=== PATIENT | male | born 1990 | race African-American/Black ===

== ENCOUNTER 2016-07-13 15:26 | Emergency (ER) | payer SELFPAY ==
[~2016-07-13] VITALS: Ht 182.9 cm; Wt 75.3 kg
[~2016-07-13 15:26] MED LIST: METO25TA4 PO
--- NOTE | 2016-07-13 16:12 | PHYS DOC ---
Past Medical History Past Medical History: Pancreatitis Past Surgical History: No Surgical History Alcohol Use: Heavy Drug Use: None Adult General Chief Complaint Chief Complaint: ABDOMINAL PAIN HPI HPI Patient is a 26 year old male with history of pancreatitis who presents today with moderate mid epigastric abdominal pain with nausea that began yesterday. Patient states he drunk 3 bottles of beer and a pint of hard liquor last night as well as a bottle of beer at 1 PM prior to coming to the ED. PCP:None GI:None Review of Systems Review of Systems Constitutional: Denies fever or chills [] Eyes: Denies change in visual acuity, redness, or eye pain [] HENT: Denies nasal congestion or sore throat [] Respiratory: Denies cough or shortness of breath [] Cardiovascular: No additional information not addressed in HPI [] GI: Epigastric abdominal pain, nausea, : Denies dysuria or hematuria [] Musculoskeletal: Denies back pain or joint pain [] Integument: Denies rash or skin lesions [] Neurologic: Denies headache, focal weakness or sensory changes [] Endocrine: Denies polyuria or polydipsia [] Current Medications Current Medications Current Medications Medications (Trade) Dose Ordered Sig/Jayne Start Time Stop Time Status Last Admin Dose Admin Famotidine (Pepcid) 20 mg 1X ONCE 07/13/16 16:15 07/13/16 16:16 DC 07/13/16 16:25 20 MG Hydromorphone HCl (Dilaudid) 1 mg 1X ONCE 07/13/16 17:30 07/13/16 17:32 DC 07/13/16 18:13 1 MG Info (Do NOT chart on this entry -- for MONITORING) 1 each PRN DAILY PRN 07/13/16 17:45 07/15/16 17:44 Iohexol (Omnipaque 300 Mg/ml) 75 ml 1X ONCE 07/13/16 17:45 07/13/16 17:46 DC 07/13/16 17:45 75 ML Ondansetron HCl (Zofran) 4 mg 1X ONCE 07/13/16 16:15 07/13/16 16:16 DC 07/13/16 16:25 4 MG Sodium Chloride 1,000 ml @ 1,000 mls/hr 1X ONCE 07/13/16 16:15 07/13/16 17:14 DC 07/13/16 16:24 1,000 MLS/HR Allergies Allergies Allergies Coded Allergies Type Severity Reaction Last Updated Verified shellfish derived Allergy Intermediate hives 09/28/15 Yes Physical Exam Physical Exam Constitutional: Well developed, well nourished, no acute distress, non-toxic appearance. [] HENT: Normocephalic, atraumatic, bilateral external ears normal, oropharynx moist, no oral exudates, nose normal. [] Eyes: PERRLA, EOMI, conjunctiva normal, no discharge. [] Neck: Normal range of motion, no tenderness, supple, no stridor. [] Cardiovascular:Heart rate regular rhythm, no murmur [] Lungs & Thorax: Bilateral breath sounds clear to auscultation [] Abdomen: Bowel sounds normal, soft, slight mid epigastric abdominal tenderness, no right upper quadrant or right lower quadrant pain or tenderness, no masses, no pulsatile masses. [] Skin: Warm, dry, no erythema, no rash. [] Back: No tenderness, no CVA tenderness. [] Extremities: No tenderness, no cyanosis, no clubbing, ROM intact, no edema. [] Neurologic: Alert and oriented X 3, normal motor function, normal sensory function, no focal deficits noted. [] Psychologic: Affect normal, judgement normal, mood normal. [] Current Patient Data Vital Signs Vital Signs Date Time Temp Pulse Resp B/P (MAP) Pulse Ox O2 Delivery O2 Flow Rate FiO2 07/13/16 18:13 62 18 118/67 (84) 98 Room Air 07/13/16 15:40 98.6 98.6 Lab Values Laboratory Tests Test 07/13/16 16:00 07/13/16 16:10 07/13/16 16:19 Urine Opiates Screen Neg (NEG) Urine Methadone Screen Neg (NEG) Urine Barbiturates Neg (NEG) Urine Phencyclidine Screen Neg (NEG) Urine Amphetamine/Methamphetamine Neg (NEG) Urine Benzodiazepines Screen Neg (NEG) Urine Cocaine Screen Neg (NEG) Urine Cannabinoids Screen Pos (NEG) Urine Ethyl Alcohol Pos (NEG) Urine Collection Type Unknown Urine Color Yellow Urine Clarity Clear Urine pH 5.0 Urine Specific Ward 1.025 Urine Protein Negative mg/dL (NEG-TRACE) Urine Glucose (UA) Negative mg/dL (NEG) Urine Ketones (Stick) Trace mg/dL (NEG) Urine Blood Negative (NEG) Urine Nitrite Negative (NEG) Urine Bilirubin Negative (NEG) Urine Urobilinogen Dipstick 1.0 mg/dL (0.2 mg/dL) Urine Leukocyte Esterase Trace (NEG) Urine RBC 0 /HPF (0-2) Urine WBC 1-4 /HPF (0-4) Urine Squamous Epithelial Cells Occ /LPF Urine Bacteria Few /HPF (0-FEW) Urine Mucus Slight /LPF White Blood Count 7.3 x10^3/uL (4.0-11.0) Red Blood Count 5.40 x10^6/uL (4.30-5.70) Hemoglobin 17.3 g/dL (13.0-17.5) Hematocrit 49.6 % (39.0-53.0) Mean Corpuscular Volume 92 fL (79-100) Mean Corpuscular Hemoglobin 32 pg (25-35) Mean Corpuscular Hemoglobin Concent 35 g/dL (31-37) Red Cell Distribution Width 13.4 % (11.5-14.5) Platelet Count 192 x10^3/uL (140-400) Neutrophils (%) (Auto) 64 % (31-73) Lymphocytes (%) (Auto) 23 % (24-48) L Monocytes (%) (Auto) 12 % (0-9) H Eosinophils (%) (Auto) 0 % (0-3) Basophils (%) (Auto) 1 % (0-3) Neutrophils # (Auto) 4.7 x10^3uL (1.8-7.7) Lymphocytes # (Auto) 1.7 x10^3/uL (1.0-4.8) Monocytes # (Auto) 0.9 x10^3/uL (0.0-1.1) Eosinophils # (Auto) 0.0 x10^3/uL (0.0-0.7) Basophils # (Auto) 0.1 x10^3/uL (0.0-0.2) Prothrombin Time 13.2 SEC (11.7-14.0) Prothrombin Time INR 1.1 (0.8-1.1) PTT 29 SEC (24-38) Sodium Level 134 mmol/L (136-145) L Potassium Level 4.5 mmol/L (3.5-5.1) Chloride Level 99 mmol/L (98-107) Carbon Dioxide Level 24 mmol/L (21-32) Anion Gap 11 (6-14) Blood Urea Nitrogen 13 mg/dL (8-26) Creatinine 0.9 mg/dL (0.7-1.3) Estimated GFR (Cockcroft-Gault) 121.6 BUN/Creatinine Ratio 14 (6-20) Glucose Level 153 mg/dL (70-99) H Calcium Level 8.4 mg/dL (8.5-10.1) L Total Bilirubin 1.0 mg/dL (0.2-1.0) Aspartate Amino Transferase (AST) 693 U/L (15-37) H Alanine Aminotransferase (ALT) 406 U/L (16-63) H Alkaline Phosphatase 110 U/L (46-116) Total Protein 8.4 g/dL (6.4-8.2) H Albumin 3.8 g/dL (3.4-5.0) Albumin/Globulin Ratio 0.8 (1.0-1.7) L Lipase 648 U/L (73-393) H Ethyl Alcohol Level 189 mg/dL (0-10) H Laboratory Tests 07/13/16 16:19 Laboratory Tests 07/13/16 16:19 EKG EKG [] Radiology/Procedures Radiology/Procedures []PROCEDURE: CT ABD PELV W/ IV CONTRST ONLY PROCEDURE CT abdomen and pelvis with contrast dated 07/13/2016. HISTORY Upper abdominal pain. TECHNIQUE Contiguous axial imaging of the abdomen and pelvis performed after the administration of 75 cc Omnipaque 300.Exposure: One or more of the following individualized dose reduction techniques were utilized for this exam: 1. Automated exposure control. 2. Adjustment of the mA and/or kV according to patient size. 3. Use of iterative reconstruction technique. COMPARISON None. FINDINGS Limited images of lung bases are clear. Mild mucous plugging left lower lobe. Heart size within normal limits. No pleural or pericardial effusion. Diffuse low density of the liver compatible with mild fatty infiltration. No apparent ectatic mass. Biliary tree normal in caliber. Possible mild wall thickening of the gallbladder. There is low density surrounding the pancreatic head, neck and body with small amount of peripancreatic fluid. No well-circumscribed fluid collection to suggest pseudocyst. The pancreatic head is somewhat prominent relative to the body and tail with some globular contour abnormality. No discrete mass. The peripancreatic vasculature appears to be patent. Spleen is normal in size. Adrenal glands and kidneys are unremarkable. No hydronephrosis. Unopacified GI tract normal in caliber and contour. No focal bowel wall thickening. No inflammatory stranding in the mesentery. Appendix normal in caliber. No ascites or lymphadenopathy. Images of pelvis show nondistended urinary bladder. Prostate gland normal in size. No free fluid or lymphadenopathy. Bone windows show no acute findings. Mild lower lumbar spondylosis. IMPRESSION - Findings consistent with acute pancreatitis with fluid and inflammatory stranding surrounding the pancreatic head, neck and body. No well-formed pseudocyst or abscess at this time. - Lobular fullness of the pancreatic head is likely related to inflamed gland. Underlying mass cannot be completely excluded. Suggest followup imaging to ensure resolution/stability. - Mild hepatic steatosis. - Mild wall thickening of the gallbladder, nonspecific. Electronically signed by: Víctor Pollock (July 13, 2016 18:14:13) DICTATED and SIGNED BY: VÍCTOR POLLOCK MD DATE: 07/13/161813 Course & Med Decision Making Course & Med Decision Making Pertinent Labs and Imaging studies reviewed. (See chart for details) This is a 26-year-old male patient with history of pancreatitis who presents today with midepigastric abdominal pain with nausea that began yesterday. He drank 1 pint of hard liquor, with, 3 bottles of beer yesterday and a bottle of beer today at 13:00 CBC no acute findings, CMP with AST of 693, ALT of 406, lipase 648, drug screen positive for marijuana and alcohol, alcohol level 189 CT of the abdomen and pelvic was noted for acute pancreatitis, was also suspicion for underlying mass on the pancreatic head. Offered patient admission. He states he has a job he cannot miss tomorrow. He requested outpatient management. Given a prescription for pain medicine and nausea medicine and requested him not to drink alcohol, requested he seeks help for ETOH abuse. Requested him to be on a clear liquid diet. Requested him to follow-up with his own doctor or the provided GI doctor on Saturday. Janaon Disclaimer Janaon Disclaimer This electronic medical record was generated, in whole or in part, using a voice recognition dictation system. Departure Departure Impression: Primary Impression: Pancreatitis, alcoholic, acute Additional Impression: ETOH abuse Disposition: HOME, SELF-CARE Condition: STABLE Referrals: NO PCP (PCP) OMAYRA HILL MD follow up tomorrow Patient Instructions: Acute Pancreatitis, Alcohol Intoxication Additional Instructions: You were seen for acute pancreatitis. We offered you admission which you refused come back to the ED if symptoms worsen. Please be on a clear diet, please do not drink. Follow up with the doctor we provided tomorrow Scripts Ondansetron (ZOFRAN ODT) 4 Mg Tab.rapdis 1 TAB SL Q8HRS, #15 TAB Prov: CAROLYN MITTAL APRN 07/13/16 Oxycodone/Apap 5-325 (PERCOCET 5-325 MG TABLET) 1 Each Tablet 1-2 TAB PO Q4-6HRS, #12 TAB Prov: CAROLYN MITTAL APRN 07/13/16 Problem Qualifiers Primary Impression: Pancreatitis, alcoholic, acute Acute pancreatitis complication: unspecified Qualified Codes: K85.20 - Alcohol induced acute pancreatitis without necrosis or infection CAROLYN MITTAL APRN July 13, 2016 16:12
[2016-07-13] MEDS ORDERED: HYDROmorphone 2 MG/ML VIAL IV ONE ×2 (16:15→17:30)
[2016-07-13] MEDS ORDERED: ONDANSETRON PF 4 MG/2 ML VIAL. IV ONE (16:15)
[2016-07-13] MEDS ORDERED: IV NORMAL SALINE 1000ML BAG 1,000 ML IV ONE (16:15)
[2016-07-13] MEDS ORDERED: FAMOTIDINE 20 MG/2 ML VIAL IVP ONE (16:15)
[2016-07-13 16:19] LABS: BILIRUBIN,URINE NEGATIVE (NEG); GLUCOSE,URINE NEGATIVE (NEG); NITRITE,URINE NEGATIVE (NEG); PROTEIN,URINE NEGATIVE (NEG-TRACE)
[2016-07-13 16:25] LABS: BASO # 0.1 x10^3/uL (0.0-0.2); BASO % 1 % (0-3); EOS % 0 % (0-3); HEMATOCRIT 49.6 % (39.0-53.0); HEMOGLOBIN 17.3 g/dL (13.0-17.5); LYMPH # 1.7 x10^3/uL (1.0-4.8); LYMPH % 23 % (24-48); MEAN CORPUSCULAR HEMOGLOBIN 32 pg (25-35); MEAN CORPUSCULAR HGB CONC 35 g/dL (31-37); MEAN CORPUSCULAR VOLUME 92 fL (79-100); MONO % 12 % (0-9); NEUT % 64 % (31-73); PLATELET COUNT 192 x10^3/uL (140-400); RED CELL DISTRIBUTION WIDTH 13.4 % (11.5-14.5); WHITE BLOOD COUNT 7.3 x10^3/uL (4.0-11.0)
[2016-07-13 16:30] LABS: BACTERIA,URINE FEW /HPF (0-FEW); RBC,URINE 0 /HPF (0-2)
[2016-07-13 16:31] LABS: SQUAMOUS EPITHELIAL CELL,UR OCC /LPF
[2016-07-13 16:34] LABS: BARBITURATES NEG (NEG); BENZODIAZEPINES NEG (NEG); CANNABINOIDS POS (NEG); COCAINE NEG (NEG); METHADONE NEG (NEG); OPIATES NEG (NEG); PHENCYCLIDINE NEG (NEG)
[2016-07-13 16:35] LABS: INR 1.1 (0.8-1.1); PROTHROMBIN TIME PATIENT 13.2 SEC (11.7-14.0)
[2016-07-13 16:39] LABS: CALCIUM 8.4 mg/dL (8.5-10.1); CREATININE 0.9 mg/dL (0.7-1.3); GFR 121.6; POTASSIUM 4.5 mmol/L (3.5-5.1)
[2016-07-13 16:45] LABS: ALBUMIN 3.8 g/dL (3.4-5.0); ALBUMIN/GLOBULIN RATIO 0.8 (1.0-1.7); TOTAL PROTEIN 8.4 g/dL (6.4-8.2)
[2016-07-13] MEDS ORDERED: IOHEXOL 300 MG/ML 75 ML VIAL IV ONE (17:45)
[2016-07-13] MEDS ORDERED: CONTRAST GIVEN MC PRN (17:45)
--- NOTE | 2016-07-13 18:15 | RAD ---
PROCEDURE CT abdomen and pelvis with contrast dated 07/13/2016. HISTORY Upper abdominal pain. TECHNIQUE Contiguous axial imaging of the abdomen and pelvis performed after the administration of 75 cc Omnipaque 300.Exposure: One or more of the following individualized dose reduction techniques were utilized for this exam: 1. Automated exposure control. 2. Adjustment of the mA and/or kV according to patient size. 3. Use of iterative reconstruction technique. COMPARISON None. FINDINGS Limited images of lung bases are clear. Mild mucous plugging left lower lobe. Heart size within normal limits. No pleural or pericardial effusion. Diffuse low density of the liver compatible with mild fatty infiltration. No apparent ectatic mass. Biliary tree normal in caliber. Possible mild wall thickening of the gallbladder. There is low density surrounding the pancreatic head, neck and body with small amount of peripancreatic fluid. No well-circumscribed fluid collection to suggest pseudocyst. The pancreatic head is somewhat prominent relative to the body and tail with some globular contour abnormality. No discrete mass. The peripancreatic vasculature appears to be patent. Spleen is normal in size. Adrenal glands and kidneys are unremarkable. No hydronephrosis. Unopacified GI tract normal in caliber and contour. No focal bowel wall thickening. No inflammatory stranding in the mesentery. Appendix normal in caliber. No ascites or lymphadenopathy. Images of pelvis show nondistended urinary bladder. Prostate gland normal in size. No free fluid or lymphadenopathy. Bone windows show no acute findings. Mild lower lumbar spondylosis. IMPRESSION - Findings consistent with acute pancreatitis with fluid and inflammatory stranding surrounding the pancreatic head, neck and body. No well-formed pseudocyst or abscess at this time. - Lobular fullness of the pancreatic head is likely related to inflamed gland. Underlying mass cannot be completely excluded. Suggest followup imaging to ensure resolution/stability. - Mild hepatic steatosis. - Mild wall thickening of the gallbladder, nonspecific. Electronically signed by: Víctor Pollock (July 13, 2016 18:14:13)
[2016-07-13 19:00] VITALS: BP 124/75
[2016-07-13] MEDS ORDERED: OXYC-323 PO (19:15)
[2016-07-13] MEDS ORDERED: ONDA4TAB10 SL (19:18)
== END 2016-07-13 19:25 | disposition home or self-care (01) ==
LOC: ER 16:32
DX: K85.20 Alcohol induced acute pancreatitis without necrosis or infection (principal); F10.10 Alcohol abuse, uncomplicated; Z91.013 Allergy to seafood
CPT/HCPCS: 36415; 74177; 80053; 80305; 80320; 81001; 83690; 85027; 85610; 85730; 96361; 96374; 96375; 96376; 99285; J1170; J2405; J7030; Q9967; S0028; G0480; G0481

== ENCOUNTER 2019-09-05 09:05 | Emergency (ER) | payer SELFPAY ==
[~2019-09-05] VITALS: Ht 182.9 cm; Wt 65.0 kg
[~2019-09-05 09:05] MED LIST changes: +ONDA4TAB10 SL; +OXYC1TAB15 PO
[2019-09-05 09:19] VITALS: BP 137/89
[2019-09-05] MEDS ORDERED: DEXAMETHASONE 4 MG TABLET PO ONE (09:30)
[2019-09-05] MEDS ORDERED: AMOXICILLIN/K CLAV 875/125MG TABLET. PO ONE (09:30)
[2019-09-05] MEDS ORDERED: HYDR-3164 PO (09:30)
[2019-09-05] MEDS ORDERED: HYDROcodone/APAP 5/325MG 1 TAB TABLET PO ONE (09:30)
[2019-09-05] MEDS ORDERED: PRED20TA PO (09:30)
[2019-09-05] MEDS ORDERED: CHLO15MO2 PO (09:30)
[2019-09-05] MEDS ORDERED: AMOX1TAB61 PO (09:30)
--- NOTE | 2019-09-05 09:30 | PHYS DOC ---
Past Medical History Past Medical History: Pancreatitis Past Surgical History: No Surgical History Smoking Status: Current Every Day Smoker Alcohol Use: Heavy Drug Use: None General Adult EDM: Chief Complaint: DENTAL PROBLEM HPI: HPI: Patient is a 29 year old [f__sex] who presents with [] Review of Systems: Review of Systems: Constitutional: Denies fever or chills. [] Eyes: Denies change in visual acuity. [] HENT: Denies nasal congestion or sore throat. [] Respiratory: Denies cough or shortness of breath. [] Cardiovascular: Denies chest pain or edema. [] GI: Denies abdominal pain, nausea, vomiting, bloody stools or diarrhea. [] : Denies dysuria. [] Musculoskeletal: Denies back pain or joint pain. [] Integument: Denies rash. [] Neurologic: Denies headache, focal weakness or sensory changes. [] Endocrine: Denies polyuria or polydipsia. [] Lymphatic: Denies swollen glands. [] Psychiatric: Denies depression or anxiety. [] Allergies: Allergies: Allergies Coded Allergies Type Severity Reaction Last Updated Verified shellfish derived Allergy Intermediate hives 09/28/15 Yes Physical Exam: PE: Constitutional: Well developed, well nourished, no acute distress, non-toxic appearance HENT: Normocephalic, atraumatic, poor dentition throughout, severe dental caries throughout, right mandibular 1st and 2nd molar gingival swelling and tenderness to palpation, no drainable abscess noted Eyes: Conjunctiva normal, no discharge Neck: Normal range of motion, supple Lungs & Thorax: No respiratory distress, equal chest rise and fall Abdomen: Soft, no tenderness Skin: Warm, dry, no erythema, no rash Extremities: No tenderness, ROM intact, no edema Neurologic: Alert and oriented X 3, no focal deficits noted Psychologic: Affect normal, judgment normal Current Patient Data: Vital Signs: Vital Signs Date Time Temp Pulse Resp B/P (MAP) Pulse Ox O2 Delivery O2 Flow Rate FiO2 09/05/19 09:19 98.0 103 18 137/89 (105) 95 Room Air 98.0 EKG: EKG: [] Radiology/Procedures: Radiology/Procedures: [] Course & Med Decision Making: Course & Med Decision Making Patient presents with HPI and physical exam consistent for dental abscess. No drainable abscess appreciated. Patient reports he smokes daily. Pain addressed. Symptomatic treatment provided with oral steroid. Empiric an tibiotic initiated. Patient stable for discharge with outpatient follow-up with PCP/dentist. Dental resource list provided. Discussed findings and plan with patient, who acknowledges understanding and agreement. Liya Disclaimer: Liya Disclaimer: This electronic medical record was generated, in whole or in part, using a voice recognition dictation system. Departure Departure Impression: Primary Impression: Dental abscess Additional Impression: Dental caries Disposition: HOME, SELF-CARE Condition: STABLE Referrals: NO PCP (PCP) Patient Instructions: Dental Abscess, Dental Caries Additional Instructions: May also take over the counter Ibuprofen 600mg (three over the counter tabs) which you may take 3x daily. Scripts Hydrocodone/Apap 5-325 (NORCO 5-325 TABLET) 1 Each Tablet 0.5-1 TAB PO PRN Q6HRS PRN for PAIN, #10 TAB 0 Refills Prov: SUSAN MARCUS DO 09/05/19 Prednisone (PREDNISONE) 20 Mg Tablet 2 TAB PO DAILY, #8 TAB Start this prescription tomorrow, 09/06/19 Prov: SUSAN MARCUS DO 09/05/19 Chlorhexidine Gluconate (PERIDEX) 15 Ml Mouthwash 15 ML PO BID for 7 Days, #473 ML 0 Refills Prov: SUSAN MARCUS DO 09/05/19 Amoxicillin/Potassium Clav (AUGMENTIN 875-125 TABLET) 1 Each Tablet 1 TAB PO BID, #14 TAB Prov: SUSAN MARCUS DO 09/05/19 Justicifation of Admission Dx: Justifications for Admission: Justification of Admission Dx: N/A SUSAN MARCUS DO Sep 05, 2019 09:30
== END 2019-09-05 10:13 | disposition home or self-care (01) ==
LOC: ER 09:05
DX: K04.7 Periapical abscess without sinus (principal); K02.9 Dental caries, unspecified; F17.200 Nicotine dependence, unspecified, uncomplicated; F10.20 Alcohol dependence, uncomplicated; Y90.9 Presence of alcohol in blood, level not specified
CPT/HCPCS: 99284

== ENCOUNTER 2019-12-22 19:48 | Emergency (ER) | payer SELFPAY ==
[~2019-12-22] VITALS: Ht 182.9 cm; Wt 68.1 kg
[~2019-12-22 19:48] MED LIST changes: +AMOX1TAB61 PO; +CHLO15MO2 PO; +HYDR-3164 PO; +PRED20TA PO
[2019-12-22 19:57] VITALS: BP 148/92
[2019-12-22] MEDS ORDERED: AMOX1TAB61 PO (20:46)
[2019-12-22] MEDS ORDERED: HYDR-3164 PO (20:46)
--- NOTE | 2019-12-22 20:47 | PHYS DOC ---
Past Medical History Past Medical History: Pancreatitis, Other Additional Past Medical Histor: dental Past Surgical History: No Surgical History Smoking Status: Current Every Day Smoker Alcohol Use: Heavy Drug Use: None General Adult EDM: Chief Complaint: DENTAL PROBLEM HPI: HPI: Patient is a 29 year old male presents with a chief complaint of right lower dental pain x1 month on and off over the last few days progressively coming worse. Patient was seen here approximately 1 month ago placed on Augmentin and then symptoms resolved. Patient followed up with a dentist at the time but did not have the money to afford tooth extraction. Location of pain right lower molar tooth 30 or 31 Patient also complains of right hand pain. Approximately 1 month ago he was at work moving a sofa when his right hand was pinned in between the sofa and door jam. Sudden onset of pain and swelling. Patient states swelling has greatly improved but still persist over his right second-third metacarpal. Patient has pain with range of motion and area is tender to palpation. Hand neurovascularly intact cap refill less than 2 seconds Review of Systems: Review of Systems: Constitutional: Denies fever or chills. [] Eyes: Denies change in visual acuity. [] HENT: Denies nasal congestion or sore throat. [Positive dental pain] Respiratory: Denies cough or shortness of breath. [] Cardiovascular: Denies chest pain or edema. [] GI: Denies abdominal pain, nausea, vomiting, bloody stools or diarrhea. [] : Denies dysuria. [] Musculoskeletal: Denies back pain or joint pain. [Positive hand pain] Integument: Denies rash. [] Neurologic: Denies headache, focal weakness or sensory changes. [] Endocrine: Denies polyuria or polydipsia. [] Lymphatic: Denies swollen glands. [] Psychiatric: Denies depression or anxiety. [] Heart Score: Risk Factors: Risk Factors: DM, Current or recent (<one month) smoker, HTN, HLP, family history of CAD, obesity. Risk Scores: Score 0 - 3: 2.5% MACE over next 6 weeks - Discharge Home Score 4 - 6: 20.3% MACE over next 6 weeks - Admit for Clinical Observation Score 7 - 10: 72.7% MACE over next 6 weeks - Early Invasive Strategies Allergies: Allergies: Allergies Coded Allergies Type Severity Reaction Last Updated Verified shellfish derived Allergy Intermediate hives 09/28/15 Yes Physical Exam: PE: Constitutional: Well developed, well nourished, no acute distress, non-toxic appearance. [] HENT: Normocephalic, atraumatic, bilateral external ears normal, oropharynx moist, no oral exudates, nose normal. [Diffuse poor dentition gum swelling dental decay tooth #[id number]] Eyes: PERRLA, EOMI, conjunctiva normal, no discharge. [] Neck: Normal range of motion, no tenderness, supple, no stridor. [] Cardiovascular:Heart rate regular rhythm, no murmur [] Lungs & Thorax: Bilateral breath sounds clear to auscultation [] Abdomen: Bowel sounds normal, soft, no tenderness, no masses, no pulsatile masses. [] Skin: Warm, dry, no erythema, no rash. [] Back: No tenderness, no CVA tenderness. [Swelling tenderness to palpation along the second third metacarpal right hand] Extremities: No tenderness, no cyanosis, no clubbing, ROM intact, no edema. [] Neurologic: Alert and oriented X 3, normal motor function, normal sensory function, no focal deficits noted. [] Psychologic: Affect normal, judgement normal, mood normal. [] Current Patient Data: Vital Signs: Vital Signs Date Time Temp Pulse Resp B/P (MAP) Pulse Ox O2 Delivery O2 Flow Rate FiO2 12/22/19 19:57 98.0 102 16 148/92 (110) 96 Room Air 98.0 EKG: EKG: [] Radiology/Procedures: Radiology/Procedures: [] Impression: X-ray no acute fractures wet read Course & Med Decision Making: Course & Med Decision Making Pertinent Labs and Imaging studies reviewed. (See chart for details) [] Dragon Disclaimer: Dragon Disclaimer: This electronic medical record was generated, in whole or in part, using a voice recognition dictation system. Departure Departure Impression: Primary Impression: Pain, dental Additional Impression: Hand contusion Disposition: 01 DC HOME SELF CARE/HOMELESS Condition: STABLE Patient Instructions: Dental Pain, Hand Contusion Scripts Hydrocodone/Apap 5-325 (NORCO 5-325 TABLET) 1 Each Tablet 1 TAB PO PRN Q6HRS PRN for PAIN for 28 Days, #20 TAB 0 Refills Prov: YESSY ALVAREZ DO 12/22/19 Amoxicillin/Potassium Clav (AUGMENTIN 875-125 TABLET) 1 Each Tablet 1 TAB PO BID for 10 Days, #20 TAB 1 Refill Prov: YESSY ALVAREZ DO 12/22/19 YESSY ALVAREZ DO Dec 22, 2019 20:47
--- NOTE | 2019-12-22 20:57 | RAD ---
Exam: Right hand 3 views INDICATION: Pain swelling TECHNIQUE: Frontal, lateral and oblique views of the right hand Comparisons: None FINDINGS: Bone mineralization is normal. No acute or healed fractures. Soft tissues are unremarkable. Joint spaces are well-maintained. IMPRESSION: No acute osseous abnormality Electronically signed by: Hafsa Lemus MD (12/22/2019 8:54 PM) JEANINE
== END 2019-12-22 21:10 | disposition home or self-care (01) ==
LOC: ER 19:48
DX: S60.221A Contusion of right hand, initial encounter (principal); K08.89 Other specified disorders of teeth and supporting structures; K00.7 Teething syndrome; K02.9 Dental caries, unspecified; F17.200 Nicotine dependence, unspecified, uncomplicated; F10.20 Alcohol dependence, uncomplicated; Y90.9 Presence of alcohol in blood, level not specified; Z91.013 Allergy to seafood; X50.0XXA Overexertion from strenuous movement or load, initial encounter; Y93.89 Activity, other specified; Y92.69 Other specified industrial and construction area as the place of occurrence of the external cause; Y99.0 Civilian activity done for income or pay
CPT/HCPCS: 73130; 99283

== ENCOUNTER 2020-01-02 17:54 | Emergency (ER) | payer SELFPAY | END 2020-01-02 21:40 | disposition left against medical advice (07) | LOC: ER 17:54 | DX: K08.89 Other specified disorders of teeth and supporting structures (principal); Z53.21 Procedure and treatment not carried out due to patient leaving prior to being seen by health care provider ==

== ENCOUNTER 2020-01-14 12:34 | Emergency (ER) | payer SELFPAY ==
[~2020-01-14] VITALS: Ht 182.9 cm; Wt 65.4 kg
[2020-01-14 13:12] LABS: BASO # 0.1 x10^3/uL (0.0-0.2); BASO % 1 % (0-3); EOS # 0.1 x10^3/uL (0.0-0.7); EOS % 1 % (0-3); HEMATOCRIT 45.9 % (39.0-53.0); HEMOGLOBIN 15.2 g/dL (13.0-17.5); LYMPH % 18 % (24-48); MEAN CORPUSCULAR HEMOGLOBIN 30 pg (25-35); MEAN CORPUSCULAR HGB CONC 33 g/dL (31-37); MEAN CORPUSCULAR VOLUME 92 fL (79-100); MONO # 1.1 x10^3/uL (0.0-1.1); MONO % 10 % (0-9); NEUT # 7.8 x10^3/uL (1.8-7.7); NEUT % 70 % (31-73); PLATELET COUNT 195 x10^3/uL (140-400); RED BLOOD COUNT 5.02 x10^6/uL (4.30-5.70); RED CELL DISTRIBUTION WIDTH 13.1 % (11.5-14.5); WHITE BLOOD COUNT 11.1 x10^3/uL (4.0-11.0)
--- NOTE | 2020-01-14 13:20 | PHYS DOC ---
Past Medical History Past Medical History: Pancreatitis, Other Additional Past Medical Histor: dental Past Surgical History: No Surgical History Smoking Status: Current Every Day Smoker Additional Information: 0.25 PPD Alcohol Use: Heavy Additional Information: PATIENT REPORTS, "DRINKS 2 TO 3 TIMES A WEEK." Drug Use: None General Adult EDM: Chief Complaint: ABDOMINAL PAIN HPI: HPI: Patient is a 29 year [id number] male patient with history of alcoholic induced pancreatitis presenting to the ED today complaining of 8 out of 10 epigastric abdominal pain that began this morning. Patient states he drank heavily yesterday. Denies any fever, nausea, vomiting. Review of Systems: Review of Systems: Constitutional: Denies fever or chills. [] Eyes: Denies change in visual acuity. [] HENT: Denies nasal congestion or sore throat. [] Respiratory: Denies cough or shortness of breath. [] Cardiovascular: Denies chest pain or edema. [] GI: Reports epigastric abdominal pain, denies nausea, vomiting, bloody stools or diarrhea. [] : Denies dysuria. [] Musculoskeletal: Denies back pain or joint pain. [] Integument: Denies rash. [] Neurologic: Denies headache, focal weakness or sensory changes. [] Psychiatric: Denies depression or anxiety. [] Heart Score: Risk Factors: Risk Factors: DM, Current or recent (<one month) smoker, HTN, HLP, family history of CAD, obesity. Risk Scores: Score 0 - 3: 2.5% MACE over next 6 weeks - Discharge Home Score 4 - 6: 20.3% MACE over next 6 weeks - Admit for Clinical Observation Score 7 - 10: 72.7% MACE over next 6 weeks - Early Invasive Strategies Current Medications: Current Medications Medications (Trade) Dose Ordered Sig/Jayne Start Time Stop Time Status Last Admin Dose Admin Multivitamins 10 ml/Thiamine HCl 100 mg/Folic Acid 1 mg/Sodium Chloride 1,011.2 ml @ 1,000.088 mls/hr 1X ONCE 01/14/20 13:30 01/14/20 14:30 Allergies: Allergies: Allergies Coded Allergies Type Severity Reaction Last Updated Verified shellfish derived Allergy Intermediate hives 09/28/15 Yes Physical Exam: PE: Constitutional: Well developed, well nourished, no acute distress, non-toxic appearance. [] HENT: Normocephalic, atraumatic, bilateral external ears normal, oropharynx moist, no oral exudates, nose normal. [] Eyes: PERRLA, EOMI, conjunctiva normal, no discharge. [] Neck: Normal range of motion, no tenderness, supple, no stridor. [] Cardiovascular:Heart rate regular rhythm, no murmur [] Lungs & Thorax: Bilateral breath sounds clear to auscultation [] Abdomen: Bowel sounds normal, soft, no tenderness, no masses, no pulsatile masses. [] Skin: Warm, dry, no erythema, no rash. [] Back: No tenderness, no CVA tenderness. [] Extremities: No tenderness, no cyanosis, no clubbing, ROM intact, no edema. [] Neurologic: Alert and oriented X 3, normal motor function, normal sensory function, no focal deficits noted. [] Psychologic: Affect normal, judgement normal, mood normal. [] Current Patient Data: Vital Signs: Vital Signs Date Time Temp Pulse Resp B/P (MAP) Pulse Ox O2 Delivery O2 Flow Rate FiO2 01/14/20 12:38 98.2 112 20 157/90 (112) 95 Room Air 98.2 EKG: EKG: [] Radiology/Procedures: Radiology/Procedures: []PROCEDURE: CT ABD PELV W/ IV CONTRST ONLY INDICATION: Reason: epigastric pain hx of pancreatitis, Etoh use / Spl. Instructions: / History: . COMPARISON: June 2016 TECHNIQUE: Axial CT images obtained through the abdomen and pelvis with contrast. One or more of the following individualized dose reduction techniques were utilized for this examination: 1. Automated exposure control; 2. Adjustment of the mA and/or kV according to patient size; 3. Use of iterative reconstruction technique. FINDINGS: Abdominal aorta is not aneurysmal. Liver is low density. No peripancreatic fluid collection. Spleen unremarkable. Urinary bladder is somewhat distended at time of exam. Mild prominence of the right greater than left extrarenal pelvis. Large amount of stool within the distal colon. No periappendiceal inflammatory changes. No dilated loops of bowel to suggest obstruction. Degenerative changes of the spine. IMPRESSION: * No evidence of bowel obstruction or appendicitis. * Large amount of stool in the distal colon. Would correlate for possible causes such as constipation. * Liver is low density which can be seen with fatty infiltration. * No peripancreatic fluid collection is seen or significant amount of adjacent inflammatory changes. Please note that mild pancreatitis may not be seen on CT. Electronically signed by: Nba Hairston MD (01/14/2020 2:17 PM) [id number] DICTATED and SIGNED BY: NBA HAIRSTON MD DATE: 01/14/20 [id number] 0 Course & Med Decision Making: Course & Med Decision Making Pertinent Labs and Imaging studies reviewed. (See chart for details) This is a 29-year-old male patient with history of alcohol induced pancreatitis presenting to the ED today with epigastric abdominal pain that began today. He reports drinking heavily yesterday. CBC with a normal WBC, CMP with glucose of 673, anion gap is normal. I ordered IV fluids, insulin on this patient. Spoke to Dr. Johnson who accepted patient for admission Patient refused to stay. He states he just started a new job and will be fired if he misses work. I offered a work note, he continued to refuse. Informed him his blood glucose is too high and this is dangerous can result to if it keeps going up. He states he understands the risk. He is alert oriented x4 and able to make his own decisions. He signed out AGAINST MEDICAL ADVICE Liya Disclaimer: Liya Disclaimer: This electronic medical record was generated, in whole or in part, using a voice recognition dictation system. Departure Departure Impression: Primary Impression: Hyperosmolar hyperglycemic state (HHS) Additional Impression: Alcoholism Disposition: 07 AMA/ELOPED/LWBS Condition: STABLE Referrals: NO PCP (PCP) CAROLYN MITTAL FORGING MACHINE OPERATOR Jan 14, 2020 13:20
[2020-01-14 13:30] VITALS: BP 153/83
[2020-01-14] MEDS ORDERED: MULTIVIT INFUSN,ADULT 4,VIT K 10 ML, THIAMINE INJ 100 MG, FOLIC ACID INJ 1 MG in IV NOR... IV ONE (13:30)
[2020-01-14 13:38] LABS: ALBUMIN 3.6 g/dL (3.4-5.0); GFR 105.5; MAGNESIUM 2.1 mg/dL (1.8-2.4); POTASSIUM 4.6 mmol/L (3.5-5.1); TOTAL BILIRUBIN 0.3 mg/dL (0.2-1.0); TOTAL PROTEIN 7.1 g/dL (6.4-8.2)
[2020-01-14] MEDS ORDERED: IOHEXOL 300 MG/ML 100ML VIAL. IV ONE (13:45)
[2020-01-14] MEDS ORDERED: MORPHINE SULFATE 10 MG/ML VIAL. IV ONE (13:45)
[2020-01-14] MEDS ORDERED: CONTRAST GIVEN. MC PRN (13:45)
[2020-01-14 13:50] LABS: BILIRUBIN,URINE NEGATIVE (NEG); COLOR,URINE YELLOW; NITRITE,URINE NEGATIVE (NEG); PH,URINE 5.5 (<5.0-8.0); PROTEIN,URINE NEGATIVE (NEG-TRACE); UROBILINOGEN,URINE 0.2 mg/dL (0.2 mg/dL)
[2020-01-14 13:57] LABS: BARBITURATES NEG (NEG); BENZODIAZEPINES NEG (NEG); CANNABINOIDS NEG (NEG); CLARITY,URINE CLEAR; COCAINE NEG (NEG); METHADONE NEG (NEG); OPIATES NEG (NEG); PHENCYCLIDINE NEG (NEG)
[2020-01-14 13:58] LABS: BACTERIA,URINE 0 /HPF (0-FEW); RBC,URINE 0 /HPF (0-2); WBC,URINE 0 /HPF (0-4)
[2020-01-14 13:59] LABS: AMPHETAMINE/METHAMPHETAMINE NEG (NEG)
[2020-01-14] MEDS ORDERED: IV NORMAL SALINE 1000ML BAG 1,000 ML IV ONE (14:00)
[2020-01-14] MEDS ORDERED: INSULIN REGULAR 100 UNIT/ML 3ML VIAL. IV ONE (14:00)
--- NOTE | 2020-01-14 14:20 | RAD ---
INDICATION: Reason: epigastric pain hx of pancreatitis, Etoh use / Spl. Instructions: / History: . COMPARISON: June 2016 TECHNIQUE: Axial CT images obtained through the abdomen and pelvis with contrast. One or more of the following individualized dose reduction techniques were utilized for this examination: 1. Automated exposure control; 2. Adjustment of the mA and/or kV according to patient size; 3. Use of iterative reconstruction technique. FINDINGS: Abdominal aorta is not aneurysmal. Liver is low density. No peripancreatic fluid collection. Spleen unremarkable. Urinary bladder is somewhat distended at time of exam. Mild prominence of the right greater than left extrarenal pelvis. Large amount of stool within the distal colon. No periappendiceal inflammatory changes. No dilated loops of bowel to suggest obstruction. Degenerative changes of the spine. IMPRESSION: * No evidence of bowel obstruction or appendicitis. * Large amount of stool in the distal colon. Would correlate for possible causes such as constipation. * Liver is low density which can be seen with fatty infiltration. * No peripancreatic fluid collection is seen or significant amount of adjacent inflammatory changes. Please note that mild pancreatitis may not be seen on CT. Electronically signed by: Marshall Hairston MD (01/14/2020 2:17 PM) [id number]
== END 2020-01-14 14:20 | disposition left against medical advice (07) ==
LOC: ER 12:34
DX: R73.9 Hyperglycemia, unspecified (principal); E87.0 Hyperosmolality and hypernatremia; F10.20 Alcohol dependence, uncomplicated; Y90.0 Blood alcohol level of less than 20 mg/100 ml; F17.200 Nicotine dependence, unspecified, uncomplicated; Z91.013 Allergy to seafood
CPT/HCPCS: 36415; 74177; 80053; 80307; 81001; 83690; 83735; 85025; 96365; 96375; 99285; G0480; J2270; J3411; J3490; J7030; Q9967